=== PATIENT | female | born 1995 | race Caucasian/White ===

== ENCOUNTER 2020-02-15 07:20 | Inpatient (IN) ==
[2020-02-15] MEDS ORDERED: PITOCIN ONE ×2 (07:29→14:10)
[2020-02-15] MEDS ORDERED: D5 1/2 NS 1000 ML 1,000 ML IV ONE ×2 (07:30→15:34)
[2020-02-15] MEDS ORDERED: D5 1/2 NS 1L W PITOCIN 20 UNITS/L 20 UNITS/1,000 ML BAG IV ONE ×2 (07:31→18:53)
[2020-02-15] MEDS ORDERED: BETADINE SOLN ONE (07:31)
[2020-02-15] MEDS ORDERED: PITOCIN IVP ONE (07:46)
[2020-02-15] MEDS ORDERED: D5LR 1L W PITOCIN 10 UNITS/L 10 UNITS/1,000 ML BAG IV PRN (07:46)
[2020-02-15] MEDS ORDERED: REGLAN INJ 10 MG VIAL IVP PRN ×2 (07:50→18:36)
[2020-02-15] MEDS ORDERED: PHENERGAN INJ 25 MG IM PRN ×2 (07:50→18:36)
[2020-02-15] MEDS ORDERED: MORPHINE SULFATE INJ 2 MG INJ IVP PRN (07:50)
[2020-02-15] MEDS ORDERED: STADOL INJ IVP PRN (07:52)
[2020-02-15 07:59] LABS: BILIRUBIN,URINE NEGATIVE (NEGATIVE); BLOOD/HEMOGLOBIN,URINE 1+ (NEGATIVE); GLUCOSE, URINE NEGATIVE (NEGATIVE); KETONES,URINE NEGATIVE (NEGATIVE); LEUKOCYTE ESTERASE ,URINE 3+ (NEGATIVE); NITRITES,URINE NEGATIVE (NEGATIVE); PH,URINE 6.5 (5.0 - 8.0); PROTEIN,URINE NEGATIVE (NEGATIVE); UROBILINOGEN,URINE NORMAL (NORMAL)
[2020-02-15] MEDS ORDERED: D5 1/2 NS 1000 ML 1,000 ML IV SCH (08:00)
[2020-02-15 08:08] LABS: APPEARANCE,URINE HAZY (CLEAR); COLOR,URINE YELLOW (YELLOW)
[2020-02-15 08:09] LABS: BACTERIA,URINE NEGATIVE /HPF (NEGATIVE); SQUAMOUS EPITHELIAL CELL,UR FEW /HPF (NEGATIVE)
[2020-02-15] MEDS ORDERED: FENTANYL INJ 100 mcg ONE (09:35)
[2020-02-15] MEDS ORDERED: LR 1000 ML IV 1,000 ML IV ONE ×2 (09:35→12:15)
[2020-02-15] MEDS ORDERED: FENTANYL 2 mcg/mL-ROPIV 0.1%-NS EPIDURAL 200 ML EPI ONE (09:39)
[2020-02-15] MEDS ORDERED: DIPRIVAN VIAL ONE (14:10)
[2020-02-15] MEDS ORDERED: EPHEDRINE SULFATE INJ ONE (14:10)
[2020-02-15] MEDS ORDERED: VERSED ONE (14:10)
[2020-02-15] MEDS ORDERED: ANCEF 1 GRAM IV PREMIX* 2 G/100 ML BAG IV ONE (16:58)
[2020-02-15] MEDS ORDERED: XYLOCAINE 2% and EPINEPHRINE 1:100,000 ONE (17:15)
[2020-02-15] MEDS ORDERED: DILAUDID INJ ONE ×2 (17:31→18:52)
[2020-02-15] MEDS ORDERED: DILAUDID INJ IVP PRN (18:36)
[2020-02-15] MEDS ORDERED: BENADRYL INJ 50 MG VIAL IVP PRN (18:36)
[2020-02-15] MEDS ORDERED: D5 1/2 NS 1000 ML 1,000 ML with PITOCIN 20 UNITS IV SCH ×2 (20:29)
[2020-02-15] MEDS: TORADOL 15 MG VIAL IVP SCH (21:00)
[2020-02-15] MEDS ORDERED: MOTRIN TAB 800 MG PO ONE (23:07)
[2020-02-16] MEDS: TORADOL 15 MG VIAL IVP SCH ×3 (02:32→16:10)
[2020-02-16 06:10] LABS: HEMATOCRIT 24.4 % (36.0-47.0); HEMOGLOBIN 7.7 g/dL (12.0-16.0)
--- NOTE | 2020-02-16 08:27 | NOTE.SOAPO ---
SOAP NOTE AUTOMOTIVE PARTS SALESPERSON Subjective Data Subjective: No complaints. Alert and Oriented x 4. No Nausea/Vomiting. ARMORED SERVICE TECHNICIAN working well. [place] draining well. No Bleeding. Objective Data Objective Data: CV= RRR no MRG Lungs=CTA Bilaterally Abd=(+) BS, soft, ND, appropriately tender near incision. Bandage clean/dry/intact. No rebound, No guarding Ext=DTR 2+= Assessment Assessment: Postop LTCS with tubal anemia Plan (1) delivery delivered: Plan: transfuse 2 units
[2020-02-16] MEDS: PRENATAL PLUS PO SCH (08:48)
[2020-02-16] MEDS ORDERED: NS 500 ML IV 500 ML IV ONE (10:24)
[2020-02-16 10:47] LABS: WHITE BLOOD COUNT 12.6 X10^3/uL (3.6-10.0)
[2020-02-16 10:48] LABS: BASOPHILS % (AUTO) 0.4 % (0.2-1.0); EOSINOPHILS # (AUTO) 0.2 x10^3/uL (0.0-0.2); EOSINOPHILS % (AUTO) 1.5 % (0.9-2.9); HEMATOCRIT 24.4 % (36.0-47.0); HEMOGLOBIN 7.7 g/dL (12.0-16.0); LYMPHOCYTES # (AUTO) 1.5 X10^3/uL (1.3-2.9); LYMPHOCYTES % (AUTO) 11.5 % (21.0-51.0); MEAN CORPUSCULAR HEMOGLOBIN 22.8 pg (27.0-34.0); MEAN CORPUSCULAR HGB CONC 31.8 g/dL (33.0-35.0); MEAN CORPUSCULAR VOLUME 71.7 fL (80.0-100.0); MEAN PLATELET VOLUME 7.7 fL (7.4-11.0); MONOCYTES # (AUTO) 0.8 x10^3/uL (0.3-0.8); MONOCYTES % (AUTO) 6.3 % (0.0-13.0); NEUTROPHILS # (AUTO) 10.1 x10^3/uL (2.2-4.8); NEUTROPHILS % (AUTO) 80.3 % (42.0-75.0); PLATELET COUNT 208 X10^3/uL (150.0-450.0); RED CELL DISTRIBUTION WIDTH 17.9 % (11.6-16.5)
[2020-02-16 10:49] LABS: ANISOCYTOSIS SLIGHT; HYPOCHROMASIA 1+; MICROCYTOSIS SLIGHT; PLATELET MORPHOLOGY COMMENT NORMAL (NORMAL)
[2020-02-16] MEDS: PERCOCET TAB 5/325 MG PO PRN ×3 (11:17→22:13)
[2020-02-16] MEDS: PROVENTIL NEB TX 0.083% 2.5MG/ 3ML NEB PRN ×2 (13:55→21:20)
[2020-02-16 15:04] LABS: HEMATOCRIT 26.9 % (36.0-47.0); HEMOGLOBIN 8.6 g/dL (12.0-16.0)
[2020-02-17] MEDS ORDERED: MOTRIN TAB 800 MG PO PRN (01:00)
[2020-02-17] MEDS: PERCOCET TAB 5/325 MG PO PRN ×5 (02:21→20:17)
[2020-02-17 07:11] LABS: BASOPHILS % (AUTO) 0.2 % (0.2-1.0); EOSINOPHILS # (AUTO) 0.3 x10^3/uL (0.0-0.2); HEMATOCRIT 26.4 % (36.0-47.0); HEMOGLOBIN 8.3 g/dL (12.0-16.0); LYMPHOCYTES # (AUTO) 1.5 X10^3/uL (1.3-2.9); MEAN CORPUSCULAR HEMOGLOBIN 23.2 pg (27.0-34.0); MEAN CORPUSCULAR HGB CONC 31.7 g/dL (33.0-35.0); MEAN CORPUSCULAR VOLUME 73.2 fL (80.0-100.0); MEAN PLATELET VOLUME 7.8 fL (7.4-11.0); MONOCYTES # (AUTO) 1.1 x10^3/uL (0.3-0.8); MONOCYTES % (AUTO) 7.3 % (0.0-13.0); NEUTROPHILS # (AUTO) 12.3 x10^3/uL (2.2-4.8); NEUTROPHILS % (AUTO) 80.5 % (42.0-75.0); PLATELET COUNT 217 X10^3/uL (150.0-450.0); RED CELL DISTRIBUTION WIDTH 19.1 % (11.6-16.5); WHITE BLOOD COUNT 15.2 X10^3/uL (3.6-10.0)
[2020-02-17 08:30] LABS: PLATELET MORPHOLOGY COMMENT NORMAL (NORMAL)
[2020-02-17 08:31] LABS: HYPOCHROMASIA 1+; MICROCYTOSIS SLIGHT
[2020-02-17] MEDS: PRENATAL PLUS PO SCH (09:07)
--- NOTE | 2020-02-17 10:16 | NOTE.SOAPO ---
SOAP NOTE MANAGER BEAUTY Subjective Data Subjective: No complaints. Alert and Oriented x 4. No Nausea/Vomiting. DIRECTOR VOLUNTEER SERVICES working well. [place] draining well. No Bleeding. Objective Data Objective Data: CV= RRR no MRG Lungs=CTA Bilaterally Abd=(+) BS, soft, ND, appropriately tender near incision. Bandage clean/dry/intact. No rebound, No guarding Ext= Assessment Assessment: s/p LTCS with tubal and blood txf Plan (1) delivery delivered: Plan: She is doing well but is not allowed to walk due to COVID-19. She would do better with early d/c and has been made aware that if she would need to come back into the hospital that she would be alone. She desire to go home as soon as her son is d/c. A verbal order has been given to the nursing staff to allow d/c if Dr. Carter d/c's the baby. She has instructions for pelvic rest and f/u in 2 weeks with me.
[2020-02-17] MEDS: PROVENTIL NEB TX 0.083% 2.5MG/ 3ML NEB PRN ×2 (14:05→21:00)
[2020-02-17] MEDS: MYLICON TAB 80 MG CHEW PO PRN (20:17)
[2020-02-18] MEDS: PERCOCET TAB 5/325 MG PO PRN ×5 (01:30→21:45)
[2020-02-18] MEDS: PROVENTIL NEB TX 0.083% 2.5MG/ 3ML NEB PRN ×2 (07:50→21:50)
[2020-02-18] MEDS: PRENATAL PLUS PO SCH (08:32)
--- NOTE | 2020-02-18 10:36 | NOTE.SOAPO ---
SOAP NOTE EDUCATION ADMINISTRATIVE ASSISTANT Subjective Data Subjective: No complaints. Alert and Oriented x 4. No Nausea/Vomiting. PANTOGRAPH I ENGRAVER working well. [place] draining well. No Bleeding. Objective Data Objective Data: CV= RRR no MRG Lungs=CTA Bilaterally Abd=(+) BS, soft, ND, appropriately tender near incision. Bandage clean/dry/intact. No rebound, No guarding Ext= Assessment Assessment: S/P LTCS with tubal Anemia Plan (1) delivery delivered: Plan: We are waiting for her baby to be ready to go home. The mother is stable and ready to go nut the has a high Bili.
[2020-02-18] MEDS: COLACE CAP 100 MG PO SCH ×2 (13:13→21:45)
[2020-02-18] MEDS ORDERED: MIRALAX POWDER (1 DOSE 17 G) ONE (19:54)
[2020-02-18] MEDS ORDERED: MIRALAX POWDER (1 DOSE 17 G) PO SCH (21:00)
[2020-02-18] MEDS: MYLICON TAB 80 MG CHEW PO PRN (21:45)
[2020-02-19] MEDS: PERCOCET TAB 5/325 MG PO PRN ×5 (02:02→19:24)
--- NOTE | 2020-02-19 08:07 | NOTE.SOAPO ---
SOAP NOTE TWENTY ONE DEALER Subjective Data Subjective: No complaints. Alert and Oriented x 4. No Nausea/Vomiting. DRAPERY SEWER HAND working well. [place] draining well. No Bleeding. Objective Data Objective Data: CV= RRR no MRG Lungs=CTA Bilaterally Abd=(+) BS, soft, ND, appropriately tender near incision. Bandage clean/dry/intact. No rebound, No guarding Ext= Assessment Assessment: LTCS with tubal anemia Plan (1) delivery delivered: Plan: She is doing well and could have gone home by now but her infant cannot go so she is staying until he is able to go home.
[2020-02-19] MEDS: PROVENTIL NEB TX 0.083% 2.5MG/ 3ML NEB PRN (09:40)
[2020-02-19] MEDS: PRENATAL PLUS PO SCH (10:09)
[2020-02-19 17:10] VITALS: BP 110/71
== END 2020-02-19 20:48 | disposition home or self-care (01) | DRG 785 ==
LOC: LD 07:20 → MED/SURG 20:38
PROVIDERS: ADMIT Obstetrics & Gynecology; ATTEND Obstetrics & Gynecology
DX: Z30.2 Encounter for sterilization; O10.913 Unspecified pre-existing hypertension complicating pregnancy, third trimester; Z37.0 Single live birth; O26.03 Excessive weight gain in pregnancy, third trimester; Z3A.39 39 weeks gestation of pregnancy; O09.93 Supervision of high risk pregnancy, unspecified, third trimester; O62.0 Primary inadequate contractions; O99.02 Anemia complicating childbirth